=== PATIENT | male | born 1990 | race African-American/Black ===

== ENCOUNTER 2016-11-13 04:09 | Emergency (ER) | payer SELFPAY ==
[~2016-11-13] VITALS: Ht 188 cm; Wt 79.8 kg
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
[2016-11-13] MEDS ORDERED: Azithromycin 250mg tab ORAL ONE (04:45)
[2016-11-13 04:55] VITALS: BP 136/82
== END 2016-11-13 04:55 | disposition home or self-care (01) ==
LOC: EMR 04:38
DX: A54.01 Gonococcal cystitis and urethritis, unspecified (principal)
CPT/HCPCS: 96372; 99283; J0696

== ENCOUNTER 2018-05-12 12:54 | Emergency (ER) | payer SELFPAY ==
[~2018-05-12] VITALS: Ht 188 cm; Wt 88.9 kg
--- NOTE | 2018-05-12 13:31 | Emergency Room Report ---
History of Present Illness General Chief Complaint: Skin Rash/Abscess Source: Patient Present Illness HPI 27-year-old male patient presents the ER complaining of 2 spider bites on his right buttock for the past 3 days. States did not see the spider or any bug. Patient reports that one is pruritic and one is painful. Reports that pus drained from post. Patient denies fever, chest pain, shortness of breath, vomiting, chills. Patient reports does not take any medication for relief of symptoms. Patient does not know if he is up-to-date on his tetanus vaccinations. Denies diarrhea or painful bowel movements. Allergies: Coded Allergies: No Known Allergies (Unverified , 11/13/16) Patient History Past Medical History: see triage record Reviewed Nursing Documentation: PMH: Agreed; PSxH: Agreed Nursing Documentation-PMH Past Medical History: No Stated History Review of Systems All Other Systems: negative except mentioned in HPI Physical Exam Vital Signs Date Time Temp Pulse Resp B/P (MAP) Pulse Ox O2 Delivery O2 Flow Rate FiO2 05/12/18 13:08 97.7 75 16 112/73 99 Room Air Sp02 EP Interpretation: reviewed, normal General Appearance: well appearing, no apparent distress, alert, GCS 15, non- toxic Head: normocephalic, atraumatic Eyes: bilateral eye normal inspection, bilateral eye PERRL Neck: full range of motion Respiratory: lungs clear, normal breath sounds, no rhonchi, no respiratory distress, no accessory muscle use, no wheezing, speaking full sentences Cardiovascular #1: regular rate, rhythm, no edema Musculoskeletal: back normal, digits/nails normal, gait/station normal, normal range of motion, non-tender Neurologic: alert, oriented x3, responsive, motor strength/tone normal, sensory intact Psychiatric: mood/affect normal Skin: other - two 1 cm circular maculopapular lesions with mild erythema and crusting noted, no surrounding erythema or edema, no red streaking, dried pus noted, no palpable mass, no fluctuance or induration, no necrosis, no crepitus, no open lesions Medical Decision Making PA Attestation Dr. Natarajan is my supervising Physician whom patient management has been discussed with. Diagnostic Impression: Primary Impression: Bug bite ER Course Pt. presents to the ED c/o bug bite. Ddx considered but are not limited to atopic dermatitis, bug bite, urticaria, allergic reaction. Vital signs: are WNL, pt. is afebrile ER COURSE: Tdap provided. Wound cleaned and dressed in the ER. Physical exam consistent with localized inflammation secondary to likely bug bite. Provide patient with topical and oral antibiotics at discharge. Expressed pus while in the ER, no palpable mass, did not believe patient requires I&D at this time. Do not scratch, apply cool compresses to affected area. Take Claritin during the day and Benadryl at night for itching symptoms. Followup with PCP and request referral to derm. ER precautions given. Wound check in 2-3 days. DISCHARGE: -Rx given for Bacitracin -Rx given for Keflex At this time pt. is stable for d/c to home. Patient resting comfortably, in no acute distress, nontoxic appearing. Care plan and follow up instructions have been discussed with the patient prior to discharge. Patient provided with printed patient care instructions, and any necessary prescriptions. Patient instructed to follow-up with primary care provider in 3 - 5 days. Patient questions asked and answered. Patient reports understanding and agreement to treatment plan. ER precautions given. Patient instructed to return to ER immediately for any new or worsening of symptoms including but not limited to increasing SOB, persistent fever. - Please note that this Emergency Department Report was dictated using [employer] under[employer] technology software, occasionally this can lead to erroneous entry secondary to interpretation by the dictation equipment. Last Vital Signs Date Time Temp Pulse Resp B/P (MAP) Pulse Ox O2 Delivery O2 Flow Rate FiO2 05/12/18 13:08 97.7 75 16 112/73 99 Room Air Disposition: HOME, SELF-CARE Condition: Stable Scripts Acetaminophen* (TYLENOL EXTRA STRENGTH*) 500 Mg Tablet 500 MG ORAL Q8H PRN for Prn Headache/Temp > 101, #30 TAB 0 Refills Prov: Dima Hodgson.ARisa 05/12/18 Cephalexin* (KEFLEX*) 500 Mg Capsule 500 MG ORAL EVERY 12 HOURS, #14 CAP 0 Refills Prov: Dima Hodgson.ARisa 05/12/18 Bacitracin/Polymyxin B Sulfate (BACITRACIN-POLYMYXIN OINTMENT) 28.35 Gm Oint...g. 1 APPLIC TP BID, #28 GM Prov: Dima Hodgson.Juliana 05/12/18 Patient Instructions: Cellulitis, [id number], Insect Bite, [id number] Additional Instructions: Followup with primary care provider or return to ER in 2-3 days for wound check. Discuss further referral with PCP. Take medications as directed. SE Benadryl drowsiness, do not take prior to drinking, driving, operating heavy machinery. Take Claritin during the day and Benadryl at night for itching symptoms. Patient questions asked and answered. ER precautions given, patient instructed to return to ER immediately for any new or worsening of symptoms. [facility] Dima Hodgson May 12, 2018 13:31
[2018-05-12] MEDS ORDERED: BACITRACIN-P28.35 GM TP (13:35)
[2018-05-12] MEDS ORDERED: CEPHALEXIN500 MG ORAL (13:35)
[2018-05-12] MEDS ORDERED: TYLENOL EXTRA500 MG ORAL (13:35)
[2018-05-12 13:41] VITALS: BP 114/80
[2018-05-12] MEDS ORDERED: Tetanus/Diptheria/Pertussis Vaccine 0.5ml Syr IM ONE (13:45)
[2018-05-12 13:46] VITALS: BP 114/80
[2018-05-12] MEDS ORDERED: NKM (14:52)
== END 2018-05-12 13:50 | disposition home or self-care (01) ==
LOC: EMR 13:49
DX: S30.860A Insect bite (nonvenomous) of lower back and pelvis, initial encounter (principal); W57.XXXA Bitten or stung by nonvenomous insect and other nonvenomous arthropods, initial encounter; Y92.9 Unspecified place or not applicable; Z23 Encounter for immunization
CPT/HCPCS: 90471; 90715; 99283

== ENCOUNTER 2018-08-28 10:46 | Emergency (ER) | payer SELFPAY ==
[~2018-08-28] VITALS: Ht 188 cm; Wt 79.4 kg
[~2018-08-28 10:46] MED LIST: BACITRACIN-P28.35 GM TP; CEPHALEXIN500 MG ORAL; NKM; TYLENOL EXTRA500 MG ORAL
--- NOTE | 2018-08-28 11:17 | NUR ---
ED Nurse Note:pt. twisted right ankle, pain meds given
[2018-08-28] MEDS ORDERED: IBUPROFEN600 MG ORAL (11:36)
[2018-08-28 11:58] VITALS: BP 132/80
--- NOTE | 2018-08-28 11:59 | NUR ---
ER DISCHARGE NOTE:airsplint was placed on right ankle and cratches provided Patient is cleared to be discharged per ERMD, pt is aox4, on room air, with stable vital signs. pt was given dc and prescription instructions, pt was able to verbalize understanding, pt is able to ambulate with cratches. pt took all belongings.
--- NOTE | 2018-08-28 12:23 | Emergency Room Report ---
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 he thinks he might have strained his ankle Does not recall a specific moment of acute trauma however The discomfort has been ongoing for the past 2 days denies any knee pain denies any neuropathy pain is worse with bearing weight Allergies: Coded Allergies: No Known Allergies (Unverified , 11/13/16) Patient History Past Medical History: see triage record Pertinent Family History: none Reviewed Nursing Documentation: PMH: Agreed; PSxH: Agreed Nursing Documentation-PMH Past Medical History: No Stated History Review of Systems All Other Systems: negative except mentioned in HPI Physical Exam Vital Signs Date Time Temp Pulse Resp B/P (MAP) Pulse Ox O2 Delivery O2 Flow Rate FiO2 08/28/18 10:47 97.9 85 18 132/80 98 Sp02 EP Interpretation: reviewed, normal General Appearance: well appearing, no apparent distress Head: normocephalic, atraumatic Eyes: bilateral eye PERRL, bilateral eye EOMI ENT: hearing grossly normal, normal pharynx, TMs + canals normal, uvula midline Neck: full range of motion, supple, no meningismus, no bony tend Respiratory: lungs clear, normal breath sounds, no rhonchi, no respiratory distress, no retraction, no accessory muscle use Cardiovascular #1: normal peripheral pulses, regular rate, rhythm, no edema, no gallop, no JVD, no murmur Gastrointestinal: normal bowel sounds, non tender, soft, no mass, no organomegaly, non-distended, no guarding, no hernia, no pulsatile mass, no rebound Genitourinary: no CVA tenderness Musculoskeletal: other - Uncomfortable on palpation of the lateral upper ankle region, mild swelling is noted in the region as well, sensory intact Neurologic: oriented x3, responsive, upholsterer helper III-XII nml as tested, motor strength/ tone normal, sensory intact Psychiatric: mood/affect normal Skin: palpation normal, other - As above Lymphatic: normal inspection, no adenopathy Procedures Splinting Splinting : Consent: Verbal Location: Right ankle Pre-Made Type: aircast Splint: sugar-tong Pre-Proc Neuro Vasc Exam: normal Post-Proc Neuro Vasc Exam: normal Patient Tolerated: Well Complications: None Medical Decision Making Diagnostic Impression: Primary Impression: ankle sprain ER Course X-ray imaging does not show any obvious acute fractures given the patient's discomfort also discomfort with bearing weight Splint is applied patient provided with crutches and requires nonweightbearing for the next one to 2 days and requires close outpatient follow-up Other X-Ray Diagnostic Results Other X-Ray Diagnostic Results #1: X-Ray ordered: Right ankle # of Views/Limited Vs Complete: 3 View Indication: Pain EP Interpretation: Yes Interpretation: no dislocation, no soft tissue swelling, no fractures Impression: No acute disease Electronically Signed by: Sea Natarajan DO Other X-Ray Diagnostic Results #2: X-Ray ordered: Right tib-fib fib # of Views/Limited Vs Complete: 3 View Indication: Pain EP Interpretation: Yes Interpretation: no dislocation, no soft tissue swelling, no fractures Impression: No acute disease Electronically Signed by: Sea Natarajan DO Last Vital Signs Date Time Temp Pulse Resp B/P (MAP) Pulse Ox O2 Delivery O2 Flow Rate FiO2 08/28/18 11:58 97.9 70 18 132/80 98 Status: improved Disposition: HOME, SELF-CARE Condition: Improved Scripts Ibuprofen* (MOTRIN*) 600 Mg Tablet 600 MG ORAL Q8H PRN for For Pain, #20 TAB 0 Refills Prov: Sea Natarajan DO 08/28/18 Departure Forms: Return to Work Return to Work in (Days): 2 Return to Work Date: Aug 30, 2018 Patient Instructions: Ankle Sprain Additional Instructions: Patient is provided with the discharge instructions notified to follow up with primary doctor in the next 2-3 days otherwise return to the er with any worsening symptoms. Please note that this report is being documented using [employer] technology. This can lead to erroneous entry secondary to incorrect interpretation by the dictating instrument. Sea Natarajan DO Aug 28, 2018 12:23
--- NOTE | 2018-08-28 12:29 | Diagnostic Imaging Report ---
RIGHT TIB/FIB, 4 VIEWS INDICATION: Pain COMPARISON: None FINDINGS: 4 views of the right tibia and fibula are obtained. Bony structures are intact. Bone mineralization is within normal limits. Soft tissues within normal limits. No radio-opaque foreign bodies seen. IMPRESSION: No acute fracture.
--- NOTE | 2018-08-28 13:00 | Diagnostic Imaging Report ---
RIGHT ANKLE, Views INDICATION: Pain COMPARISON: None FINDINGS: 3 views of the right ankle are obtained. Bony structures are intact. Bone mineralization is within normal limits. Joint spaces are preserved. Soft tissues are within normal limits. No radio-opaque foreign bodies. IMPRESSION: No acute fracture or subluxation identified.
== END 2018-08-28 12:01 | disposition home or self-care (01) ==
LOC: EMR 11:26
DX: S93.401A Sprain of unspecified ligament of right ankle, initial encounter (principal); X58.XXXA Exposure to other specified factors, initial encounter; Y92.9 Unspecified place or not applicable
CPT/HCPCS: 29515; 99283

== ENCOUNTER 2020-08-04 02:56 | Emergency (ER) | payer MEDICAID ==
[~2020-08-04] VITALS: Ht 182.9 cm; Wt 90.7 kg
[~2020-08-04 02:56] MED LIST changes: +ACETAMINOPHEN-1 EAC1 ORAL; +AUGMENTIN 875-1 EAC1 ORAL; +CHLORHEXIDINE473 ML MM; +IBUPROFEN600 MG ORAL
[2020-08-04] MEDS ORDERED: ceFAZolin sod 1 GM in NS 55 ML IVPB ONE (03:00)
[2020-08-04] MEDS ORDERED: Tetanus/Diptheria/Pertussis IM ONE ×2 (03:00→03:54)
--- NOTE | 2020-08-04 03:00 | NUR ---
Spoke with Measurement Operator#[id number] at [employer]-will send a unit out.
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
[2020-08-04 03:32] VITALS: BP 137/71
[2020-08-04 03:38] LABS: ANION GAP 17 mmol/L (5-15); BLOOD UREA NITROGEN 15 mg/dL (7-18); CALCIUM 9.5 MG/DL (8.5-10.1); CARBON DIOXIDE 17 MMOL/L (21-32); CHLORIDE 103 MMOL/L (98-107); CREATININE 1.4 MG/DL (0.55-1.30); POTASSIUM 3.5 MMOL/L (3.5-5.1); SODIUM 137 MMOL/L (136-145)
[2020-08-04 03:41] LABS: BASOPHILS % (AUTO) 0.7 % (0.0-2.0); EOSINOPHILS % (AUTO) 1.8 % (0.0-3.0); HEMATOCRIT 42.5 % (42.0-52.0); HEMOGLOBIN 13.9 G/DL (14.2-18.0); LYMPHOCYTES % (AUTO) 49.4 % (20.0-45.0); MEAN CORPUSCULAR VOLUME 94 FL (80-99); MONOCYTES % (AUTO) 6.2 % (1.0-10.0); NEUTROPHILS % (AUTO) 41.8 % (45.0-75.0); PLATELET COUNT 329 K/UL (150-450); RED CELL DISTRIBUTION WIDTH 12.8 % (11.6-14.8); WHITE BLOOD COUNT 14.8 K/UL (4.8-10.8)
[2020-08-04 03:43] LABS: ALANINE AMINOTRANSFERASE 54 U/L (12-78); ALBUMIN 4.6 G/DL (3.4-5.0); ALBUMIN/GLOBULIN RATIO 1.3 (1.0-2.7); ALKALINE PHOSPHATASE 85 U/L (46-116); ASPARTATE AMINO TRANSFERASE 32 U/L (15-37); BILIRUBIN,TOTAL 0.1 MG/DL (0.2-1.0)
[2020-08-04 03:44] LABS: INR 0.9 (0.9-1.1)
[2020-08-04 04:00] VITALS: BP 137/94
--- NOTE | 2020-08-04 04:05 | NUR ---
TRANSFER TO FLOOR: Patient transferred to [facility] as ordered, per MD.
--- NOTE | 2020-08-04 04:20 | NUR ---
ED Nurse Note: chest tube inserted by to the left side 28 FR pt transferred to [facility]
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
== END 2020-08-04 04:05 | disposition short-term general hospital (02) ==
LOC: EMR 03:02
DX: S21.132A Puncture wound without foreign body of left front wall of thorax without penetration into thoracic cavity, initial encounter (principal); S41.132A Puncture wound without foreign body of left upper arm, initial encounter; S61.531A Puncture wound without foreign body of right wrist, initial encounter; S55.101A Unspecified injury of radial artery at forearm level, right arm, initial encounter; S01.131A Puncture wound without foreign body of right eyelid and periocular area, initial encounter; X95.9XXA Assault by unspecified firearm discharge, initial encounter; Y92.9 Unspecified place or not applicable; J93.9 Pneumothorax, unspecified; Z23 Encounter for immunization
CPT/HCPCS: 32551; 36415; 71045; 80053; 85025; 85610; 85730; 86850; 86900; 86901; 90471; 90715; 96365; J0690; J7030; Z7502; 99291

== ENCOUNTER 2020-08-19 12:46 | Emergency (ER) | payer MEDICAID ==
[~2020-08-19] VITALS: Ht 185.4 cm; Wt 81.6 kg
[2020-08-19] MEDS ORDERED: HYDROcodone/Acetamin 5/325 tab ORAL ONE (13:45)
[2020-08-19] MEDS ORDERED: Ketorolac 30mg Inj IM ONE (13:45)
[2020-08-19] MEDS ORDERED: IBUPROFEN600 M1 ORAL (13:46)
[2020-08-19] MEDS ORDERED: HYDROCODON-ACE1 EA16 ORAL (13:46)
[2020-08-19 13:47] VITALS: BP 146/78
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
== END 2020-08-19 14:14 | disposition home or self-care (01) ==
LOC: EMR 13:37
DX: G89.29 Other chronic pain (principal); S05.62XA Penetrating wound without foreign body of left eyeball, initial encounter; W34.00XA Accidental discharge from unspecified firearms or gun, initial encounter
CPT/HCPCS: 96372; J1885; Z7502; 99283